=== PATIENT | female | born 1940 | race Caucasian/White ===

== ENCOUNTER 2016-08-18 10:49 | Outpatient (CLI) | payer MEDICARE ==
[2016-08-18 13:03] LABS: ALT (SGPT) 16 U/L (0-55); AST (SGOT) 26 U/L (5-34); Alkaline Phosphatase 69 U/L (40-150); Anion Gap 14 mmol/L (10-20); BUN (Urea Nitrogen) 16 mg/dL (9.8-20.1); Bilirubin, Total 0.5 mg/dL (0.2-1.2); Calc. Creatinine Clearance 0 mL/min (70-130); Calcium 9.7 mg/dL (7.8-10.44); Carbon Dioxide 29 mmol/L (23-31); Chloride 103 mmol/L (98-107); Estimated GFR-MDRD 59; Globulin 2.8 g/dL (2.4-3.5); LDL Cholesterol, Calculated 90 mg/dL; Protein, Total 6.8 g/dL (5.8-8.1)
[2016-08-18 13:35] LABS: #Eosinphils 0.1 thou/uL (0.0-0.7); #Lymphocytes 1.7 thou/uL (1.20-3.40); #Monocytes 0.3 thou/uL (0.11-0.59); %Basophils 0.8 % (0.0-1.0); %Eosinophils 2.4 % (0.0-10.0); %Monocytes 7.5 % (0.0-10.0); Hematocrit 44.8 % (36.0-47.0); Mean Platelet Volume 5.7 fL (7.4-10.4); Red Blood Cell (RBC) Count 4.86 mill/uL (4.20-5.40); White Blood Cell (WBC) Count 4.2 thou/uL (4.8-10.8)
== END 2016-08-18 10:50 | disposition home or self-care (01) ==
LOC: HPCALD 10:49
PROVIDERS: ATTEND Family Medicine
DX: E03.9 Hypothyroidism, unspecified (principal); I10 Essential (primary) hypertension
CPT/HCPCS: 36415; 80053; 80061; 84443; 85025

== ENCOUNTER 2017-11-17 08:06 | Outpatient (CLI) | payer MEDICARE ==
--- NOTE | 2017-11-17 21:21 | RAD ---
RIGHT SHOULDER THREE VIEWS: 11/17/17 No fracture, dislocation, or AC joint widening was seen. There is some faint calcification of the art icular cartilage. Some apical pleural thickening is seen in the right hemithorax, as well as some tee cified apical granulomas. The scapula appears intact. IMPRESSION: 1. No acute findings. 2. Chondrocalcinosis. POS: HOME
== END 2017-11-17 08:07 | disposition home or self-care (01) ==
LOC: BURRAD 08:06
PROVIDERS: ATTEND Family Medicine
DX: M25.511 Pain in right shoulder (principal); M11.211 Other chondrocalcinosis, right shoulder

== ENCOUNTER 2021-01-12 20:00 | Emergency (ER) | payer MEDICARE ==
[~2021-01-12 20:00] MED LIST: Iopamidol 370 76% 100 ML VIAL ONE
[2021-01-12 21:10] LABS: #Lymphocytes 0.6 thou/uL (1.20-3.40); #Monocytes 0.1 thou/uL (0.11-0.59); #Neutrophils 5.2 thou/uL (1.40-6.50); %Basophils 0.5 % (0.0-1.0); %Eosinophils 0.1 % (0.0-10.0); %Lymphocytes 9.6 % (21.0-51.0); %Neutrophils 87.7 % (42.0-75.0); Hemoglobin 12.5 g/dL (12.0-16.0); Mean Corpuscular HGB CONC 31.6 g/dL (32.0-36.0); Mean Corpuscular Hemoglobin 29.6 pg (27.0-31.0); Mean Corpuscular Volume 93.6 fL (78.0-98.0); Mean Platelet Volume 7.3 fL (7.4-10.4); Platelet Count 199 thou/uL (130-400); RBC Distribution Width 13.1 % (11.5-14.5); Red Blood Cell (RBC) Count 4.23 mill/uL (4.20-5.40)
[2021-01-12 21:18] LABS: AST (SGOT) 22 U/L (5-34); Bilirubin, Total 0.4 mg/dL (0.2-1.2); Calcium 9.5 mg/dL (7.8-10.44); Chloride 103 mmol/L (98-107); Potassium 3.8 mmol/L (3.5-5.1); Sodium 139 mmol/L (136-145)
[2021-01-12 21:52] LABS: ALT (SGPT) 13 U/L (8-55); Albumin 3.9 g/dL (3.4-4.8); Alkaline Phosphatase 57 U/L (40-110); Anion Gap 17 mmol/L (10-20); BUN (Urea Nitrogen) 30 mg/dL (9.8-20.1); Calc. Creatinine Clearance 0 mL/min (70-130); Carbon Dioxide 24 mmol/L (23-31); Globulin 2.7 g/dL (2.4-3.5); Glucose 144 mg/dL (83-110); Lipase 59 U/L (8-78); Magnesium 1.9 mg/dL (1.6-2.6); Protein, Total 6.6 g/dL (5.8-8.1)
[2021-01-12 22:05] LABS: Bilirubin Negative (Negative); Blood, Urine Moderate (Negative); Clarity Clear (Clear); Glucose, Urine (Dipstick) Negative (Negative); Ketone, Urine 15 mg/dL (Negative); Leukocyte Negative (Negative); Nitrite Negative (Negative); Protein, Urine (Dipstick) Negative (Neg-Trace); Urobilinogen 0.2 mg/dL (Less than 2)
[2021-01-12 22:08] LABS: Bacteria/HPF None Seen HPF (None Seen); Mucous/LPF None Seen LPF (<2+); Specific Gravity, Urine 1.026 (1.002-1.036); Squamous Epithelial 0-3 HPF (0-3); WBC/HPF None Seen HPF (0-3)
[2021-01-12] MEDS ORDERED: Fentanyl 100 MCG/2 ML VIAL ONE (22:43)
[2021-01-12] MEDS ORDERED: Piperacillin/Tazobactam 4.5 GM VIAL ONE (22:43)
[2021-01-12] MEDS ORDERED: Sodium Chloride 0.9% 100 ML ONE (22:44)
[2021-01-13 00:07] LABS: SARS-CoV-2 NAA Rapid Test Not Detected (NotDetected)
== END 2021-01-13 00:46 | disposition short-term general hospital (02) ==
LOC: BURERS 20:00
DX: K81.0 Acute cholecystitis (principal); I10 Essential (primary) hypertension; Z20.822 Contact with and (suspected) exposure to COVID-19; Z79.899 Other long term (current) drug therapy
CPT/HCPCS: 51701; 71046; 74177; 80053; 81003; 81015; 83605; 83690; 83735; 84484; 85025; 93005; 94760; 96365; 96375; J2543; J3010; J3490; Q9967; U0002

== ENCOUNTER 2021-12-09 11:44 | Outpatient (CLI) | payer MEDICARE | END 2021-12-09 11:45 | disposition home or self-care (01) | LOC: BURRAD 11:44 | PROVIDERS: ATTEND Physician Assistant | DX: M41.9 Scoliosis, unspecified (principal) | CPT/HCPCS: 72081 ==

== ENCOUNTER 2023-01-08 10:25 | Outpatient (CLI) | payer MEDICARE | END 2023-01-08 10:26 | disposition home or self-care (01) | LOC: BURCT 10:25 | PROVIDERS: ATTEND Physician Assistant | DX: R93.7 Abnormal findings on diagnostic imaging of other parts of musculoskeletal system (principal); M47.814 Spondylosis without myelopathy or radiculopathy, thoracic region; M43.8X4 Other specified deforming dorsopathies, thoracic region; M47.816 Spondylosis without myelopathy or radiculopathy, lumbar region; M48.05 Spinal stenosis, thoracolumbar region | CPT/HCPCS: 72128; 72131 ==

== ENCOUNTER 2023-01-30 16:13 | Emergency (ER) | payer MEDICARE ==
[2023-01-30 16:55] LABS: #Lymphocytes 1.2 thou/uL (1.20-3.40); #Monocytes 0.3 thou/uL (0.11-0.59); #Neutrophils 2.6 thou/uL (1.40-6.50); %Basophils 0.8 % (0.0-1.0); %Eosinophils 0.8 % (0.0-10.0); %Lymphocytes 28.5 % (21.0-51.0); %Monocytes 6.9 % (0.0-10.0); Hemoglobin 11.8 g/dL (12.0-16.0); Mean Corpuscular HGB CONC 31.8 g/dL (32.0-36.0); Mean Corpuscular Hemoglobin 29.2 pg (27.0-31.0); Mean Corpuscular Volume 91.7 fl (78.0-98.0); Mean Platelet Volume 6.7 fL (7.4-10.4); Platelet Count 174 10x3/uL (130-400); Red Blood Cell (RBC) Count 4.03 mill/uL (4.20-5.40); White Blood Cell (WBC) Count 4.1 10x3/uL (4.8-10.8)
[2023-01-30 17:09] LABS: ALT (SGPT) 15 U/L (8-55); AST (SGOT) 23 U/L (5-34); Albumin 3.9 g/dL (3.4-4.8); Alkaline Phosphatase 67 U/L (40-110); Anion Gap 16 mmol/L (10-20); BUN (Urea Nitrogen) 33 mg/dL (9.8-20.1); Bilirubin, Total 0.3 mg/dL (0.2-1.2); Calc. Creatinine Clearance 0 mL/min (70-130); Calcium 9.4 mg/dL (7.8-10.44); Carbon Dioxide 27 mmol/L (23-31); Chloride 104 mmol/L (98-107); Estimated GFR 36; Globulin 2.6 g/dL (2.4-3.5); Glucose 117 mg/dL (83-110); Potassium 4.7 mmol/L (3.5-5.1); Protein, Total 6.5 g/dL (5.8-8.1); Sodium 142 mmol/L (136-145)
[2023-01-30] MEDS ORDERED: Aspirin 325 MG TAB ONE (17:15)
== END 2023-01-30 20:25 | disposition short-term general hospital (02) ==
LOC: BURERS 16:13
DX: I67.1 Cerebral aneurysm, nonruptured (principal); I10 Essential (primary) hypertension; E07.9 Disorder of thyroid, unspecified; Z79.899 Other long term (current) drug therapy
CPT/HCPCS: 36416; 70450; 70496; 70498; 71045; 80053; 83880; 84484; 85025; 93005; 94760; 36415-59; Q9967

== ENCOUNTER 2024-08-02 10:07 | Emergency (ER) | payer MEDICARE ==
[2024-08-02 10:34] LABS: #Eosinophils 0.1 thou/uL (0.0-0.7); #Lymphocytes 0.9 thou/uL (1.20-3.40); #Monocytes 0.3 thou/uL (0.11-0.59); #Neutrophils 3.2 thou/uL (1.40-6.50); %Eosinophils 2.6 % (0.0-10.0); %Lymphocytes 19.7 % (21.0-51.0); %Monocytes 6.8 % (0.0-10.0); %Neutrophils 69.9 % (42.0-75.0); Hematocrit 34.2 % (36.0-47.0); Hemoglobin 11.6 g/dL (12.0-16.0); Mean Corpuscular HGB CONC 33.9 g/dL (32.0-36.0); Mean Corpuscular Hemoglobin 30.4 pg (27.0-31.0); Mean Corpuscular Volume 89.7 fl (78.0-98.0); Mean Platelet Volume 5.8 fL (7.4-10.4); Platelet Count 209 10x3/uL (130-400); Red Blood Cell (RBC) Count 3.81 mill/uL (4.20-5.40); White Blood Cell (WBC) Count 4.5 10x3/uL (4.8-10.8)
[2024-08-02] MEDS ORDERED: fentaNYL 50 mcg/mL 1 mL Vial ONE (10:36)
[2024-08-02 10:54] LABS: Bilirubin Negative (Negative); Blood, Urine Small (Negative); Clarity Clear (Clear); Glucose, Urine (Dipstick) 250 mg/dL (Negative); Ketone, Urine Negative (Negative); Leukocyte Negative (Negative); Nitrite Negative (Negative); Protein, Urine (Dipstick) 100 mg/dL (Neg-Trace); pH, Urine 5.5 (5.0-9.0)
[2024-08-02 11:03] LABS: Bacteria/HPF None Seen HPF (None Seen); CAUTI Indications for Culture Dysuria,urgency,freq; Squamous Epithelial 0-3 HPF (0-3); WBC/HPF None Seen HPF (0-3)
[2024-08-02 11:04] LABS: ALT (SGPT) 15 U/L (8-55); AST (SGOT) 22 U/L (5-34); Albumin 3.4 g/dL (3.4-4.8); Alkaline Phosphatase 43 U/L (40-110); Anion Gap 14 mmol/L (10-20); BUN (Urea Nitrogen) 34 mg/dL (9.8-20.1); Bilirubin, Total 0.4 mg/dL (0.2-1.2); Calc. Creatinine Clearance 0 mL/min (70-130); Calcium 9.3 mg/dL (7.8-10.44); Carbon Dioxide 25 mmol/L (23-31); Chloride 106 mmol/L (98-107); Estimated GFR 27; Glucose 162 mg/dL (83-110); Lipase 59 U/L (8-78); Potassium 4.2 mmol/L (3.5-5.1); Protein, Total 6.4 g/dL (5.8-8.1); Sodium 141 mmol/L (136-145)
[2024-08-02 11:04] LABS: Urine Culture Reflex No No
[2024-08-02 11:06] LABS: Troponin I 0.037 ng/mL (< 0.028)
[2024-08-02] MEDS ORDERED: HYDROcodone/Acetaminophen 5/325 mg Tablet ONE (12:24)
[2024-08-02] MEDS ORDERED: valACYclovir 500 MG TAB ONE (12:25)
[2024-08-02] MEDS ORDERED: dilTIAZem 25 MG/5 ML VIAL ONE (12:48)
== END 2024-08-02 15:37 | disposition short-term general hospital (02) ==
LOC: BURERS 10:07
DX: N17.9 Acute kidney failure, unspecified (principal); I47.10 Supraventricular tachycardia, unspecified; R79.89 Other specified abnormal findings of blood chemistry; R74.02 Elevation of levels of lactic acid dehydrogenase [LDH]; R10.11 Right upper quadrant pain; R23.8 Other skin changes; I10 Essential (primary) hypertension; Z79.899 Other long term (current) drug therapy
CPT/HCPCS: 74176; 80053; 81001; 83605; 83690; 84484; 85025; 93005; 96361; 96374; 96375; J3010